=== PATIENT | female | born 1945 | race Caucasian/White ===

== ENCOUNTER 2017-04-07 05:45 | Inpatient (IN) | payer OTHER ==
[~2017-04-07] VITALS: Ht 152.4 cm; Wt 65.3 kg
[2017-04-07 06:30] VITALS: BP 148/70
[2017-04-07 13:23] LABS: T3 TOTAL 1.21 ng/mL
[2017-04-07 13:29] LABS: CHOLESTEROL/HDL RATIO 1.9; MAGNESIUM 1.8 mg/dL (1.8-2.4); PHOSPHOROUS 3.9 mg/dL (2.5-4.9)
[2017-04-07 13:40] VITALS: BP 123/60
[2017-04-07 14:04] LABS: FREE THYROXINE INDEX 1.3 ug/dL (1.4-4.5); T4(THYROXINE) 1.9 ug/dL (4.7-13.3)
[2017-04-07 14:05] LABS: FREE T4 0.01 ng/dL (0.76-1.46)
[2017-04-07] MEDS ORDERED: LIPI10 PO (14:37)
[2017-04-07] MEDS ORDERED: BENAZEPRIL HCL/1 TAB PO (14:38)
[2017-04-07 15:14] LABS: CALCIUM 8.5 mg/dL (8.5-10.1); CARBON DIOXIDE 28.9 mmol/L (21-32); CHLORIDE SERUM 102 mmol/L (98-107); CREATININE SERUM 0.7 mg/dL (0.6-1.0); GFR1 > 60 mL/min; GLUCOSE SERUM 144 mg/dL (74-106); POTASSIUM SERUM 3.5 mmol/L (3.5-5.1); SODIUM SERUM 139 mmol/L (136-145)
[2017-04-07 15:19] LABS: PLATELET COUNT 343 x10^3mcL (130-400); RED CELL DISTRIBUTION WIDTH 12.3 % (11.5-14.5)
[2017-04-07 15:22] LABS: BASOPHIL % 0 % (0-2)
[2017-04-07 16:42] LABS: microscopic required? YES; urine erythrocyte 2+ (NEGATIVE)
[2017-04-07 18:10] VITALS: BP 118/60
[2017-04-07 20:47] VITALS: BP 102/49
[2017-04-08 06:03] VITALS: BP 110/52
[2017-04-08 06:23] LABS: CALCIUM 7.8 mg/dL (8.5-10.1); CARBON DIOXIDE 25.6 mmol/L (21-32); CHLORIDE SERUM 101 mmol/L (98-107); CREATININE SERUM 0.6 mg/dL (0.6-1.0); GFR1 > 60 mL/min; GLUCOSE SERUM 122 mg/dL (74-106); SODIUM SERUM 136 mmol/L (136-145)
[2017-04-08 08:08] LABS: BASOPHIL % 0.2 % (0-2); PLATELET COUNT 273 x10^3mcL (130-400); RED CELL DISTRIBUTION WIDTH 12.6 % (11.5-14.5)
[2017-04-08 10:07] VITALS: BP 126/62
[2017-04-08 14:28] VITALS: BP 144/58
[2017-04-08 16:27] VITALS: BP 138/58
[2017-04-08 21:23] VITALS: BP 114/48
[2017-04-09 05:50] VITALS: BP 149/63
[2017-04-09 06:26] LABS: BASOPHIL % 0.1 % (0-2); PLATELET COUNT 256 x10^3mcL (130-400); RED CELL DISTRIBUTION WIDTH 12.5 % (11.5-14.5)
[2017-04-09 06:28] LABS: CALCIUM 8.1 mg/dL (8.5-10.1); CARBON DIOXIDE 29.9 mmol/L (21-32); CHLORIDE SERUM 102 mmol/L (98-107); CREATININE SERUM 0.6 mg/dL (0.6-1.0); GFR1 > 60 mL/min; GLUCOSE SERUM 121 mg/dL (74-106); POTASSIUM SERUM 3.6 mmol/L (3.5-5.1); SODIUM SERUM 135 mmol/L (136-145)
[2017-04-09 09:32] VITALS: BP 132/52
[2017-04-09 13:20] VITALS: BP 145/63
[2017-04-09 17:11] VITALS: BP 133/58
[2017-04-09 22:01] VITALS: BP 116/51
[2017-04-10 08:54] LABS: CHLORIDE SERUM 100 mmol/L (98-107); CREATININE SERUM 0.6 mg/dL (0.6-1.0); GFR1 > 60 mL/min; GLUCOSE SERUM 114 mg/dL (74-106); POTASSIUM SERUM 3.3 mmol/L (3.5-5.1); SODIUM SERUM 136 mmol/L (136-145)
[2017-04-10 08:55] LABS: BASOPHIL % 0.3 % (0-2); PLATELET COUNT 249 x10^3mcL (130-400); RED CELL DISTRIBUTION WIDTH 12.6 % (11.5-14.5)
[2017-04-10 10:30] VITALS: BP 134/56
[2017-04-10 13:53] VITALS: BP 133/56
[2017-04-10 21:00] VITALS: BP 121/49
[2017-04-11 05:33] VITALS: BP 120/48
[2017-04-11 06:07] LABS: CALCIUM 8.1 mg/dL (8.5-10.1); CARBON DIOXIDE 26.4 mmol/L (21-32); CHLORIDE SERUM 103 mmol/L (98-107); CREATININE SERUM 0.6 mg/dL (0.6-1.0); GFR1 > 60 mL/min; GLUCOSE SERUM 113 mg/dL (74-106); POTASSIUM SERUM 3.8 mmol/L (3.5-5.1); SODIUM SERUM 132 mmol/L (136-145)
[2017-04-11 06:10] LABS: BASOPHIL % 0.5 % (0-2); PLATELET COUNT 293 x10^3mcL (130-400); RED CELL DISTRIBUTION WIDTH 12.4 % (11.5-14.5)
[2017-04-11 10:03] VITALS: BP 123/58
[2017-04-11 13:29] VITALS: BP 117/48
[2017-04-12 06:40] VITALS: BP 103/47
[2017-04-12 07:24] LABS: BASOPHIL % 0.5 % (0-2); PLATELET COUNT 382 x10^3mcL (130-400); RED CELL DISTRIBUTION WIDTH 12.2 % (11.5-14.5)
[2017-04-12 07:55] LABS: CALCIUM 8.5 mg/dL (8.5-10.1); CARBON DIOXIDE 27.3 mmol/L (21-32); CHLORIDE SERUM 102 mmol/L (98-107); CREATININE SERUM 0.6 mg/dL (0.6-1.0); GFR1 > 60 mL/min; GLUCOSE SERUM 99 mg/dL (74-106); POTASSIUM SERUM 3.6 mmol/L (3.5-5.1); SODIUM SERUM 136 mmol/L (136-145)
[2017-04-12 09:20] VITALS: BP 126/52
[2017-04-12] MEDS ORDERED: PHARMASSURE VI500 MG PO (14:17)
[2017-04-12] MEDS ORDERED: FERROUS SULFAT325 M2 PO (14:17)
[2017-04-12] MEDS ORDERED: MOT800 PO (14:20)
[2017-04-12] MEDS ORDERED: NORCO1 TA2 PO (14:21)
[2017-04-12] MEDS ORDERED: COLACE100 MG PO (14:34)
[2017-04-12 14:49] VITALS: BP 126/52
[2017-04-12] MEDS ORDERED: METFORMIN HCL500 MG PO (15:09)
[2017-04-12] MEDS ORDERED: [UNRECOGNIZED DRUG - SUPPLY] MC (15:13)
[2017-04-12] MEDS ORDERED: GLUCOSE TEST S1 EACH MC (15:13)
[2017-04-12] MEDS ORDERED: LANCETS1 EAC1 MC (15:13)
[2017-04-12 17:30] VITALS: BP 110/48
[2017-04-12 21:49] VITALS: BP 124/46
[2017-04-13 05:33] VITALS: BP 151/61
[2017-04-13 09:28] VITALS: BP 118/48
[2017-04-13 13:24] VITALS: BP 138/46
[2017-04-13 17:42] VITALS: BP 138/46
[2017-04-13 17:45] VITALS: BP 115/50
[2017-04-13] MEDS ORDERED: ATORVASTATIN CA10 M1 PO (21:22)
[2017-04-13] MEDS ORDERED: APAP/HYDROCODON1 T15 PO (21:22)
[2017-04-13] MEDS ORDERED: NATURAL IRON65 MG PO (21:22)
[2017-04-13] MEDS ORDERED: BENAZEPRIL HCL/1 TAB PO (21:22)
[2017-04-13] MEDS ORDERED: C500500 MG PO (21:22)
[2017-04-13] MEDS ORDERED: METFORMIN HCL500 MG PO (21:23)
[2017-04-13] MEDS ORDERED: [UNRECOGNIZED DRUG - SUPPLY] MC (21:23)
[2017-04-13] MEDS ORDERED: [UNRECOGNIZED DRUG - OTHER] MC (21:23)
[2017-04-13] MEDS ORDERED: COLACE100 MG PO (21:23)
[2017-04-13] MEDS ORDERED: GLUCOCOM LANCE1 EAC1 MC (21:23)
[2017-04-13] MEDS ORDERED: MOT800 PO (21:23)
== END 2017-04-13 19:38 | disposition home health service (06) | DRG 469 ==
LOC: DU 05:45 → MU 05:45 → DU 07:30
PROVIDERS: Neuromusculoskeletal Medicine, Sports Medicine; ADMIT Family Medicine
PROC: 0SRC0J9 Replacement of Right Knee Joint with Synthetic Substitute, Cemented, Open Approach (ICD-10-PCS; principal; 2017-04-07 07:30)
DX: M17.11 Unilateral primary osteoarthritis, right knee (principal); N17.0 Acute kidney failure with tubular necrosis; D68.69 Other thrombophilia; E87.1 Hypo-osmolality and hyponatremia; I42.9 Cardiomyopathy, unspecified; E11.59 Type 2 diabetes mellitus with other circulatory complications; E11.65 Type 2 diabetes mellitus with hyperglycemia; E87.6 Hypokalemia; I10 Essential (primary) hypertension; R31.9 Hematuria, unspecified; D64.9 Anemia, unspecified; E03.9 Hypothyroidism, unspecified; Z68.28 Body mass index [BMI] 28.0-28.9, adult
CPT/HCPCS: 82962; 83880; 84439; 94150; 97110-GP; 97116-GP; 97139; 97530-GP; C1713; C1776; J0690; J1650; J1885; J2250; J2270; J2405; J2704; J3010; J3490; J7030; J7120; Q0092; Q0163

== ENCOUNTER 2019-07-02 11:22 | Emergency (ER) | payer OTHER ==
[~2019-07-02] VITALS: Ht 152.4 cm; Wt 64.0 kg
[~2019-07-02 11:22] MED LIST: APAP/HYDROCODON1 T15 PO; ATORVASTATIN CA10 M1 PO; BENAZEPRIL HCL/1 TAB PO; C500500 MG PO; COLACE100 MG PO; FERROUS SULFAT325 M2 PO; GLUCOCOM LANCE1 EAC1 MC; GLUCOSE TEST S1 EACH MC; LANCETS1 EAC1 MC; LIPI10 PO; METFORMIN HCL500 MG PO; MOT800 PO; NATURAL IRON65 MG PO; NORCO1 TA2 PO; PHARMASSURE VI500 MG PO; [UNRECOGNIZED DRUG - OTHER] MC; [UNRECOGNIZED DRUG - SUPPLY] MC
[2019-07-02 11:33] VITALS: Ht 152.4 cm; Wt 64.0 kg
[2019-07-02 15:24] LABS: BASOPHIL % 0.3 % (0-2); PLATELET COUNT 347 x10^3mcL (130-400); RED CELL DISTRIBUTION WIDTH 12.8 % (11.5-14.5)
[2019-07-02 15:31] LABS: CALCIUM 9.2 mg/dL (8.5-10.1); CARBON DIOXIDE 28.6 mmol/L (21-32); CHLORIDE SERUM 104 mmol/L (98-107); CREATININE SERUM 0.6 mg/dL (0.6-1.0); GLUCOSE SERUM 97 mg/dL (74-106); POTASSIUM SERUM 4.5 mmol/L (3.5-5.1); SODIUM SERUM 140 mmol/L (136-145)
[2019-07-02 15:44] LABS: ALBUMIN 3.7 g/dL (3.4-5.0); ALKALINE PHOSPHATASE 91 U/L (46-116); ALT/SGPT 10 U/L (14-59); AST/SGOT 13 U/L (15-37); LIPASE 76 IU/L (73-393); T4(THYROXINE) 9.6 ug/dL (4.7-13.3); TOTAL PROTEIN, SERUM 7.9 g/dL (6.4-8.2)
[2019-07-02 16:11] LABS: microscopic required? NO
[2019-07-02 16:23] LABS: UA SPECIFIC GRAVITY <=1.005 (1.005-1.035); urine erythrocyte NEGATIVE (NEGATIVE)
[2019-07-02 17:33] VITALS: BP 165/87
== END 2019-07-02 17:33 | disposition home or self-care (01) ==
LOC: ED 11:22
PROVIDERS: Emergency Medicine
DX: K57.92 Diverticulitis of intestine, part unspecified, without perforation or abscess without bleeding (principal); I10 Essential (primary) hypertension; E78.00 Pure hypercholesterolemia, unspecified
CPT/HCPCS: J2405; J3010; J7030